=== PATIENT | male | born 1970 | race American Indian/Alaskan Native ===

== ENCOUNTER 2021-01-28 17:28 | Emergency (ER) | payer SELFPAY ==
[2021-01-28 23:34] VITALS: BP 146/92
== END 2021-01-29 01:00 | disposition left against medical advice (07) ==
LOC: ED 17:28
DX: R68.2 Dry mouth, unspecified (principal); Z53.21 Procedure and treatment not carried out due to patient leaving prior to being seen by health care provider
CPT/HCPCS: 82962